=== PATIENT | female | born 1965 | race Caucasian/White ===

== ENCOUNTER 2021-07-28 06:39 | Outpatient (CLI) | payer OTHER, SELFPAY ==
--- NOTE | ~2021-07-28 | MR_ITS ---
EXAMINATION: MR knee RT wo con DATE: 07/28/2021 07:33 INDICATION: Chronic right knee pain TECHNIQUE: Magnetic resonance imaging (MRI) of the right knee was performed without intravenous contr ast. Sequences included coronal PD-weighted FSE, coronal PD-weighted FS FSE, sagittal T2-weighted FS E, sagittal PD-weighted FS FSE and axial PD weighted fat saturated FSE. COMPARISON: None. FINDINGS: Medial compartment: Complex tear at the medial side of the posterior horn of the medial meniscus which extends obliquely in all 3 planes from the free edge to the periphery of the meniscus. Subtle partial-thickness chondra l fissure at the anterior weightbearing medial femoral condyle. Articular cartilage is otherwise norm al. Lateral compartment: Lateral meniscus is normal. Small focus of partial-thickness chondral fissuring at the posterior medi al most aspect of the lateral tibial plateau. Small region of partial-thickness chondral ulceration w hich appears to involve at least 50% the cartilage thickness at the junction of the anterior to centr al weightbearing lateral femoral condyle. Patellofemoral compartment: Extensive partial thickness cartilage loss involving greater than 50% the cartilage thickness along s ignificant portions of the medial and lateral patellar facets and intervening apical ridge. Additiona l deeper fissuring with minimal underlying cystlike change at the central aspect of the lateral somers lar facet. Small region of partial-thickness chondral fissuring at the inferolateral aspect of the me dial facet. Ligaments and tendons: Anterior and posterior cruciate ligaments are normal. The fibular collateral ligament complex is norm al. There is mild thickening and mild increased of the proximal medial collateral ligament without preciado rrounding edema consistent with mild scarring related to chronic sprain. The extensor mechanism is no rmal. The visualized medial and lateral hamstring tendons as well as the iliotibial band are normal. Fluid: Physiologic amount of fluid in the joint space. No loose osteochondral bodies identified. Mild prepat ellar edema without discrete bursal fluid collection. Osseous/other: Bone alignment is normal. No fracture or abnormal marrow replacing process. IMPRESSION: 1. Complex tear at the junction of the body and posterior horn of the medial meniscus. 2. 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 3. Mild scarring at the proximal medial collateral ligament consistent with sequela of chronic sprain . Reviewed, dictated and finalized at location A. IMPRESSION: 1. Complex tear at the junction of the body and posterior horn of the medial me niscus. 2. Mild tricompartmental osteoarthritis with high-grade chondromalacia in the p atellofemoral compartment and small region of moderate grade chondromalacia in the medial and lateral compartments. 3. Mild scarring at the proximal medial collateral ligament consistent with seq uela of chronic sprain.
== END 2021-07-28 06:40 | disposition home or self-care (01) ==
PROVIDERS: PCP Physician Assistant; Visit Provider Orthopaedic Surgery
DX: S83.231A Complex tear of medial meniscus, current injury, right knee, initial encounter (principal); X58.XXXA Exposure to other specified factors, initial encounter; M17.11 Unilateral primary osteoarthritis, right knee
CPT/HCPCS: 73721